=== PATIENT | female | born 1975 | race Caucasian/White ===

== ENCOUNTER 2019-10-28 17:42 | Inpatient (IN) ==
[2019-10-28] MEDS ORDERED: DICYCLOMINE 10 MG CAPSULE PO PRN (17:48)
[2019-10-28] MEDS ORDERED: METHOCARBAMOL 750 MG TABLET PO PRN (17:48)
[2019-10-28] MEDS ORDERED: cloNIDine 0.1 MG TABLET PO PRN (17:48)
[2019-10-28] MEDS: HydrOXYzine PAMOATE 25 MG CAPSULE PO PRN (18:53)
[2019-10-28] MEDS ORDERED: THIAMINE INJ 100 MG, FOLIC ACID INJ 1 MG, MULTIVITAMIN INJ 10 ML in SODIUM CHLORIDE 0.9... IV ONE (20:00)
[2019-10-28] MEDS: chlordiazePOXIDE 25 MG CAPSULE PO SCH (20:10)
[2019-10-28] MEDS: ENOXAPARIN 40 MG/0.4 ML SYRINGE SUBCUT SCH ×2 (22:07→22:13)
[2019-10-28] MEDS: FLUoxetine 10 MG CAPSULE PO SCH (22:08)
[2019-10-28] MEDS: traZODone 50 MG TABLET PO SCH (22:08)
[2019-10-28] MEDS: LORazepam 2 MG/1 ML VIAL IV PRN (22:32)
[2019-10-29] MEDS ORDERED: ALUM/MAG/SIMETH/LIDO VISC 1:1 30 ML BOTTLE PO ONE
[2019-10-29] MEDS: chlordiazePOXIDE 25 MG CAPSULE PO SCH ×4 (02:20→20:54)
[2019-10-29 04:43] LABS: Basophils % 0.5 % (0.0-0.8); Eosinophils # 0.1 10*3/uL (0.0-0.87); Eosinophils % 0.8 % (0.00-10.9); Hematocrit 36.6 VOL% (35.7-47.0); Hemoglobin 12.7 GM/DL (12.0-16.0); Immature Granulocytes % 0.7 %; Immature Granulocytes Absolute 0.04 #; Lymphocytes # 2.1 10*3/uL (1.4-4.0); Lymphocytes % 34.4 % (21.3-54.2); Mean Corpuscular HGB Conc 34.7 GM/DL (32-36); Mean Corpuscular Volume 94.1 FL (87-102); Mean Platelet Volume 8.9 FL (9.6-12.0); Neutrophils % 51.6 % (38.7-73.9); Platelet Count 197 T/CUMM (130-400); Red Blood Count 3.89 MC/CUMM (3.8-5.5)
[2019-10-29 05:33] LABS: Albumin 3.2 G/DL (3.4-5.0); Bilirubin,Total 1.5 MG/DL (0.2-1.0); Calcium 8.5 MG/DL (8.5-10.1); Osmolality,Calculated 277.4 MOS/KG (273-304); Risk Ratio 2.39; Thyroid Stimulating Hormone 1.55 uIU/ml (0.358-3.74); Total Protein 6.5 G/DL (6.4-8.3); VLDL CHOLESTEROL 23.2 MG/DL
[2019-10-29 06:10] LABS: HIV Antigen/Antibody Result Nonreactive (Nonreactive); Hepatitis B Core IgM Quant 0.07 Index; Hepatitis B Surface Ag Quant < 0.10 Index; Hepatitis B Surface Ag Result Negative (Negative); Hepatitis C Virus Ab Quant 0.06 Index; Hepatitis C Virus Ab Result Negative (Negative)
[2019-10-29] MEDS: SODIUM CHLORIDE 0.9% 1,000 ML IV SCH ×3 (06:38→14:31)
[2019-10-29] MEDS: PANTOPRAZOLE 40 MG TABLET PO SCH (09:02)
[2019-10-29] MEDS: FLUoxetine 10 MG CAPSULE PO SCH ×2 (09:02→20:54)
[2019-10-29] MEDS: LORazepam 2 MG/1 ML VIAL IV PRN ×3 (12:36→22:48)
[2019-10-29 14:03] LABS: Barbiturates Screen,Urine Negative (Negative); Benzodiazepines Screen,Urine Positive (Negative); Cannabinoid Screen,Urine Positive (Negative); Opiate Screen,Urine Negative (Negative); Phencyclidine Screen,Urine Negative (Negative)
[2019-10-29] MEDS: HydrOXYzine PAMOATE 25 MG CAPSULE PO PRN ×2 (14:27→20:54)
[2019-10-29] MEDS: POTASSIUM CHLORIDE 20 MEQ TABLET PO PRN ×2 (14:31→20:55)
[2019-10-29] MEDS ORDERED: RANITIDINE 150 MG TABLET PO ONE (15:18)
[2019-10-29] MEDS ORDERED: IBUPROFEN 600 MG TABLET PO ONE (15:18)
[2019-10-29] MEDS: traZODone 50 MG TABLET PO SCH (20:54)
[2019-10-29] MEDS: ENOXAPARIN 40 MG/0.4 ML SYRINGE SUBCUT SCH (20:56)
[2019-10-30] MEDS: LORazepam 2 MG/1 ML VIAL IV PRN ×4 (03:58→22:00)
[2019-10-30] MEDS: SODIUM CHLORIDE 0.9% 1,000 ML IV SCH (04:01)
[2019-10-30] MEDS: chlordiazePOXIDE 25 MG CAPSULE PO SCH ×3 (04:02→20:52)
[2019-10-30] MEDS: POTASSIUM CHLORIDE 20 MEQ TABLET PO PRN (04:02)
[2019-10-30 04:42] LABS: Basophils % 0.3 % (0.0-0.8); Eosinophils # 0.1 10*3/uL (0.0-0.87); Eosinophils % 1.3 % (0.00-10.9); Hematocrit 35.1 VOL% (35.7-47.0); Immature Granulocytes % 0.6 %; Immature Granulocytes Absolute 0.04 #; Lymphocytes # 1.9 10*3/uL (1.4-4.0); Lymphocytes % 29.7 % (21.3-54.2); Mean Corpuscular HGB Conc 34.2 GM/DL (32-36); Mean Corpuscular Volume 96.2 FL (87-102); Mean Platelet Volume 8.8 FL (9.6-12.0); Monocytes % 7.7 % (1.7-12.7); Neutrophils % 60.4 % (38.7-73.9); Platelet Count 151 T/CUMM (130-400); Red Blood Count 3.65 MC/CUMM (3.8-5.5); Red Cell Distribution Width 11.9 % (9.3-17.3); White Blood Count 6.3 T/CUMM (4-12)
[2019-10-30 06:00] LABS: Albumin 2.8 G/DL (3.4-5.0); Bilirubin,Total 0.5 MG/DL (0.2-1.0); Calcium 8.1 MG/DL (8.5-10.1); Osmolality,Calculated 285.8 MOS/KG (273-304); Total Protein 5.7 G/DL (6.4-8.3)
[2019-10-30] MEDS: FLUoxetine 10 MG CAPSULE PO SCH ×2 (08:57→20:51)
[2019-10-30] MEDS: HydrOXYzine PAMOATE 25 MG CAPSULE PO PRN ×3 (08:57→20:51)
[2019-10-30] MEDS: PANTOPRAZOLE 40 MG TABLET PO SCH (08:57)
[2019-10-30] MEDS: ONDANSETRON 4 MG/2 ML VIAL IV PRN (13:03)
[2019-10-30] MEDS: traZODone 50 MG TABLET PO SCH (20:51)
[2019-10-30] MEDS: ENOXAPARIN 40 MG/0.4 ML SYRINGE SUBCUT SCH (20:52)
[2019-10-31] MEDS: HydrOXYzine PAMOATE 25 MG CAPSULE PO PRN (04:06)
[2019-10-31] MEDS: chlordiazePOXIDE 25 MG CAPSULE PO SCH ×2 (04:07→12:29)
[2019-10-31 04:52] LABS: Basophils % 0.4 % (0.0-0.8); Eosinophils # 0.1 10*3/uL (0.0-0.87); Eosinophils % 1.1 % (0.00-10.9); Hematocrit 38.9 VOL% (35.7-47.0); Hemoglobin 13.2 GM/DL (12.0-16.0); Immature Granulocytes % 0.7 %; Immature Granulocytes Absolute 0.05 #; Lymphocytes # 1.9 10*3/uL (1.4-4.0); Mean Corpuscular HGB Conc 33.9 GM/DL (32-36); Mean Corpuscular Volume 97.7 FL (87-102); Monocytes % 7.2 % (1.7-12.7); Neutrophils % 64.6 % (38.7-73.9); Platelet Count 159 T/CUMM (130-400); Red Blood Count 3.98 MC/CUMM (3.8-5.5); Red Cell Distribution Width 11.9 % (9.3-17.3); White Blood Count 7.3 T/CUMM (4-12)
[2019-10-31 05:12] LABS: Bilirubin,Total 0.5 MG/DL (0.2-1.0); Calcium 8.6 MG/DL (8.5-10.1); Osmolality,Calculated 281.4 MOS/KG (273-304)
[2019-10-31] MEDS: LORazepam 2 MG/1 ML VIAL IV PRN ×3 (05:15→14:27)
[2019-10-31] MEDS: FLUoxetine 10 MG CAPSULE PO SCH (08:28)
[2019-10-31] MEDS: PANTOPRAZOLE 40 MG TABLET PO SCH (08:28)
[2019-10-31] MEDS: ONDANSETRON 4 MG/2 ML VIAL IV PRN (10:14)
[2019-10-31 11:48] VITALS: BP 98/65
== END 2019-10-31 15:05 | disposition home or self-care (01) | DRG 897 ==
LOC: SUATTDRO 18:07 → N.4E 18:07
PROVIDERS: ADMIT Phlebology; ATTEND Emergency Medicine